=== PATIENT | male | born 1985 | race Caucasian/White ===

== ENCOUNTER 2019-03-13 09:22 | Emergency (ER) | payer SELFPAY ==
--- NOTE | 2019-03-13 11:11 | RAD REPORT ---
EXAM DESCRIPTION: RAD - Ankle Right 3 View - 03/13/2019 10:51 am CLINICAL HISTORY: Right ankle pain status post injury FINDINGS: No fracture or dislocation is seen. Soft tissue swelling laterally
[2019-03-13] MEDS ORDERED: IBUPROFEN 400 MG TAB ONE (11:15)
[2019-03-13] MEDS ORDERED: HYDROCODONE/APAP 5/325 MG TAB ONE (11:15)
--- NOTE | 2019-03-13 11:40 | RAD REPORT ---
EXAM DESCRIPTION: RAD - Foot Right 3 View - 03/13/2019 10:51 am CLINICAL HISTORY: PAIN COMPARISON: No comparisons FINDINGS: Small plantar calcaneal spur evident. No acute fracture or dislocation seen.
--- NOTE | 2019-03-13 11:45 | ER ---
Nurse's Notes [facility] Name: Vishal Polanco III Age: 33 yrs Sex: Male : 1985 Arrival Date: 03/13/2019 Time: : Bed 12 Private MD: Unknown, Unknown Diagnosis: Sprain of ankle;Sprain of foot Presentation: 03/13 09:27 Presenting complaint: Patient states: playing football yesterday and injured his right sv foot/ankle. Care prior to arrival: None. 09:27 Acuity: DENG 4 sv : Method Of Arrival: Wheelchair sv 09:28 Transition of care: patient was not received from another setting of care. Onset of sv symptoms was March 12, 2019. 10:30 Risk Assessment: Do you want to hurt yourself or someone else? Patient reports no aa5 desire to harm self or others. Initial Sepsis Screen: Does the patient meet any 2 criteria? No. Patient's initial sepsis screen is negative. Does the patient have a suspected source of infection? No. Patient's initial sepsis screen is negative. Triage Assessment: 09:27 General: Appears in no apparent distress. uncomfortable, Behavior is calm, cooperative, sv appropriate for age. Pain: Complains of pain in right ankle and dorsum of right foot. Neuro: Level of Consciousness is awake, alert, obeys commands, Oriented to person, place, time, situation. Respiratory: Respiratory effort is even, unlabored, Respiratory pattern is regular, symmetrical. Trauma Activation: Not Applicable Physician: ED Physician; Name: ; Notified At: ; Arrived At: Physician: General Surgeon; Name: ; Notified At: ; Arrived At: Physician: Radiology; Name: ; Notified At: ; Arrived At: Physician: Respiratory; Name: ; Notified At: ; Arrived At: Physician: Lab; Name: ; Notified At: ; Arrived At: Historical: - Allergies: : No Known Allergies; sv - Ebola Screening: : No symptoms or risks identified at this time. Screenin:30 Abuse screen: Denies threats or abuse. Nutritional screening: No deficits noted. aa5 Tuberculosis screening: No symptoms or risk factors identified. Fall Risk Fall in past 12 months (25 points). Assessment: 10:30 General: Appears comfortable, Behavior is calm, cooperative. Pain: Complains of pain in aa5 right ankle Pain does not radiate. Pain currently is 5 out of 10 on a pain scale. Quality of pain is described as aching, throbbing, Is continuous, Aggravated by increased activity, weight bearing. Neuro: Level of Consciousness is awake, alert, obeys commands, Oriented to person, place, time, situation. Cardiovascular: Patient's skin is warm and dry. Respiratory: Airway is patent Respiratory effort is even, unlabored, Respiratory pattern is regular, symmetrical. GI: No signs and/or symptoms were reported involving the gastrointestinal system. : No signs and/or symptoms were reported regarding the genitourinary system. EENT: No signs and/or symptoms were reported regarding the EENT system. Derm: Skin is pink, warm \T\ dry. Musculoskeletal: Circulation, motion, and sensation intact. Swelling present in right ankle. 11:30 Reassessment: Patient is alert, oriented x 3, equal unlabored respirations, skin aa5 warm/dry/pink. Walking boot applied to right foot . Vital Signs: 09:28 BP 137 / 87; Pulse 83; Resp 16; Temp 98; Pulse Ox 97% ; Weight 77.11 kg; Height 5 ft. 8 sv in. (172.72 cm); Pain 5/10; 09:28 Body Mass Index 25.85 (77.11 kg, 172.72 cm) sv ED Course: 09:25 Patient arrived in ED. ag5 09:26 Unknown, Unknown is Private Physician. ag5 09:28 Triage completed. sv 09:29 Arm band placed on. sv 10:28 Beulah Blackwell FNP-C [facility]. snw 10:28 West Mcgregor MD is Attending Physician. snw 10:30 Patient has correct armband on for positive identification. Adult w/ patient. aa5 10:31 Serene Mitchell, RN is Primary Nurse. aa5 11:03 Ankle Right 3 View XRAY Sent. sv 11:03 Foot Right 3 View XRAY Sent. sv 11:30 No provider procedures requiring assistance completed. Patient did not have IV access aa5 during this emergency room visit. Administered Medications: 11:15 Drug: [place] 5 mg-325 mg 1 tabs Route: PO; aa5 11:32 Follow up: Response: No adverse reaction aa5 11:15 Drug: Motrin 400 mg Route: PO; aa5 11:32 Follow up: Response: No adverse reaction aa5 Outcome: 11:09 Discharge ordered by . coleman 11:32 Discharged to home via wheelchair, with significant other. aa5 11:32 Condition: stable 11:32 Discharge instructions given to patient, Instructed on discharge instructions, follow up and referral plans. medication usage, Demonstrated understanding of instructions, follow-up care, medications, Prescriptions given X 2. 11:33 Patient left the ED. aa5 Signatures: Genny Barriga RN RN sv Therrien, Shelly, SURGERY ATTENDANT-C SURGERY ATTENDANT-Csnw Serene Mitchell RN RN aa5 Rupa [facility]
--- NOTE | 2019-03-13 11:46 | EDPHYS ---
Physician Documentation [facility] Name: Vishal Polanco III Age: 33 yrs Sex: Male : 1985 Arrival Date: 03/13/2019 Time: 09:25 Bed 12 Private MD: Unknown, Unknown ED Physician West Mcgregor HPI: 03/13 11:12 This 33 yrs old Male presents to ER via Wheelchair with complaints of Fall snw Injury, Foot Pain. 11:12 Details of fall: The patient fell from an upright position, during sports, football. snw Onset: The symptoms/episode began/occurred suddenly, yesterday. Associated injuries: The patient sustained dorsum of right foot and right ankle, contusion, painful injury, swelling. Severity of symptoms: At their worst the symptoms were moderate. The patient has not experienced similar symptoms in the past. It is unknown whether or not the patient has recently seen a physician. no other c/o, twisted ankle/foot and fell while playing football with his Son yesterday. Historical: - Allergies: 09:28 No Known Allergies; sv - Ebola Screening: : No symptoms or risks identified at this time. ROS: 11:11 Constitutional: Negative for fever, chills, and weight loss, Eyes: Negative for injury, snw pain, redness, and discharge, ENT: Negative for injury, pain, and discharge, Neck: Negative for injury, pain, and swelling, Cardiovascular: Negative for chest pain, palpitations, and edema, Respiratory: Negative for shortness of breath, cough, wheezing, and pleuritic chest pain, Abdomen/GI: Negative for abdominal pain, nausea, vomiting, diarrhea, and constipation, Back: Negative for injury and pain, : Negative for injury, bleeding, discharge, and swelling, Skin: Negative for injury, rash, and discoloration, Neuro: Negative for headache, weakness, numbness, tingling, and seizure, Psych: Negative for depression, anxiety, suicide ideation, homicidal ideation, and hallucinations. 11:11 MS/extremity: Positive for injury or acute deformity, decreased range of motion, pain, swelling, of the dorsum of right foot and right ankle. Exam: 11:11 Constitutional: This is a well developed, well nourished patient who is awake, alert, snw and in no acute distress. Head/Face: Normocephalic, atraumatic. Eyes: Pupils equal round and reactive to light, extra-ocular motions intact. Lids and lashes normal. Conjunctiva and sclera are non-icteric and not injected. Cornea within normal limits. Periorbital areas with no swelling, redness, or edema. ENT: Nares patent. No nasal discharge, no septal abnormalities noted. Tympanic membranes are normal and external auditory canals are clear. Oropharynx with no redness, swelling, or masses, exudates, or evidence of obstruction, uvula midline. Mucous membranes moist. Neck: Trachea midline, no thyromegaly or masses palpated, and no cervical lymphadenopathy. Supple, full range of motion without nuchal rigidity, or vertebral point tenderness. No Meningismus. Chest/axilla: Normal chest wall appearance and motion. Nontender with no deformity. No lesions are appreciated. Cardiovascular: Regular rate and rhythm with a normal S1 and S2. No gallops, murmurs, or rubs. Normal PMI, no JVD. No pulse deficits. Respiratory: Lungs have equal breath sounds bilaterally, clear to auscultation and percussion. No rales, rhonchi or wheezes noted. No increased work of breathing, no retractions or nasal flaring. Abdomen/GI: Soft, non-tender, with normal bowel sounds. No distension or tympany. No guarding or rebound. No evidence of tenderness throughout. Back: No spinal tenderness. No costovertebral tenderness. Full range of motion. Skin: Warm, dry with normal turgor. Normal color with no rashes, no lesions, and no evidence of cellulitis. Neuro: Awake and alert, GCS 15, oriented to person, place, time, and situation. Cranial nerves II-XII grossly intact. Motor strength 5/5 in all extremities. Sensory grossly intact. Cerebellar exam normal. Normal gait. Psych: Awake, alert, with orientation to person, place and time. Behavior, mood, and affect are within normal limits. 11:11 Musculoskeletal/extremity: Extremities: grossly normal except: noted in the dorsum of right foot and right ankle: swelling, tenderness, ROM: no acute changes, Circulation is intact in all extremities. Sensation intact. Vital Signs: 09:28 BP 137 / 87; Pulse 83; Resp 16; Temp 98; Pulse Ox 97% ; Weight 77.11 kg; Height 5 ft. 8 sv in. (172.72 cm); Pain 11/04; 09:28 Body Mass Index 25.85 (77.11 kg, 172.72 cm) sv MDM: 10:36 Patient medically screened. lily 11:10 Data reviewed: vital signs, nurses notes. Data interpreted: Pulse oximetry: on room air snw is 97 %. Interpretation: normal. Counseling: I had a detailed discussion with the patient and/or guardian regarding: the historical points, exam findings, and any diagnostic results supporting the discharge/admit diagnosis, the presence of at least one elevated blood pressure reading (>120/80) during this emergency department visit, radiology results, the need for outpatient follow up, to return to the emergency department if symptoms worsen or persist or if there are any questions or concerns that arise at home. Special discussion: Based on the history and exam findings, there is no indication for further emergent testing or inpatient evaluation. I discussed with the patient/guardian the need to see the orthopedic surgeon for further evaluation of the symptoms. I discussed with the patient/guardian the need to see the primary care provider for further evaluation of the symptoms. 03/13 09:30 Order name: Foot Right 3 View XRAY 03/13 09:30 Order name: Ankle Right 3 View XRAY 03/13 11:06 Order name: Walking boot; Complete Time: 11:32 snw Administered Medications: 11:15 Drug: [place] 5 mg-325 mg 1 tabs Route: PO; aa5 11:32 Follow up: Response: No adverse reaction aa5 11:15 Drug: Motrin 400 mg Route: PO; aa5 11:32 Follow up: Response: No adverse reaction aa5 Disposition: 03/14 07:46 Co-signature as Attending Physician, West Mcgregor MD I agree with the assessment and [facility] plan of care. Disposition: 03/13/19 11:09 Discharged to Home. Impression: Sprain of ankle, Sprain of foot. - Condition is Stable. - Discharge Instructions: Elastic Bandage and RICE, Ankle Sprain, Foot Sprain, Hypertension, Cryotherapy, Heat Therapy, Walking Boot. - Prescriptions for Diclofenac Sodium 75 mg Oral Tablet Sustained Release - take 1 tablet by ORAL route 2 times per day; 30 tablet. orphenadrine citrate 100 mg Oral Tablet Sustained Release - take 1 tablet by ORAL route 2 times per day As needed; 20 tablet. - Work release form, Medication Reconciliation Form, Thank You Letter, Antibiotic Education, Prescription Opioid Use form. - Follow up: Private Physician; When: 2 - 3 days; Reason: Recheck today's complaints, Continuance of care, Re-evaluation by your physician. Follow up: Emergency Department; When: As needed; Reason: Worsening of condition. Signatures: Dispatcher [employer] EDGenny Pretty RN RN West Hearn MD MD cha Therrien, Shelly, HOTEL BREAKFAST ATTENDANT-C HOTEL BREAKFAST ATTENDANT-Csnw Serene Mitchell, SALVATORE RN aa5 Corrections: (The following items were deleted from the chart) 03/13 11:33 11:09 03/13/2019 11:09 Discharged to Home. Impression: Sprain of ankle; Sprain of foot. aa5 Condition is Stable. Forms are Medication Reconciliation Form, Thank You Letter, Antibiotic Education, Prescription Opioid Use. Follow up: Private Physician; When: 2 - 3 days; Reason: Recheck today's complaints, Continuance of care, Re-evaluation by your physician. Follow up: Emergency Department; When: As needed; Reason: Worsening of condition. snw
[2019-03-13 12:16] VITALS: BP 137/87; TEMP 98; O2SAT 97
== END 2019-03-13 11:33 | disposition home or self-care (01) ==
LOC: ER 09:22
DX: S93.601A Unspecified sprain of right foot, initial encounter (principal); S93.401A Sprain of unspecified ligament of right ankle, initial encounter; X50.1XXA Overexertion from prolonged static or awkward postures, initial encounter; Y93.61 Activity, american tackle football; Y92.9 Unspecified place or not applicable
CPT/HCPCS: 99283

== ENCOUNTER 2020-07-17 01:16 | Emergency (ER) | payer SELFPAY ==
[2020-07-17 01:54] LABS: Protime INR 0.9
[2020-07-17 02:05] LABS: Absolute Lymphocytes (CBC) 2.7 K/uL (0.7-4.9); Basophils % 0.6 % (0-1.3); Hematocrit 43.8 % (39.6-49.0); Lymphocytes % 29.5 % (15.3-44.8); MPV 10.6 fL (7.6-11.3); RBC Red Blood Cell Count 5.08 M/uL (4.33-5.43)
[2020-07-17 02:07] LABS: ALT/SGPT 42 U/L (12-78); AST/SGOT 19 U/L (15-37); Albumin 3.9 g/dL (3.4-5.0); Alkaline Phosphatase 69 U/L (45-117); BUN Blood Urea Nitrogen 9 mg/dL (7-18); Bicarbonate 24 mmol/L (21-32); Bilirubin Direct < 0.1 mg/dL (0-0.2); Bilirubin Total 0.2 mg/dL (0.2-1.0); Glucose Level 96 mg/dL (74-106); Magnesium 2.4 mg/dL (1.8-2.4); NT PRO-BNP 7 pg/mL (<125); Potassium 3.9 mmol/L (3.5-5.1); Protein, Total 7.6 g/dL (6.4-8.2); Sodium Level 140 mmol/L (136-145); Troponin (Emerg Dept Use Only) < 0.02 ng/mL (0.0-0.045)
[2020-07-17] MEDS ORDERED: IBUPROFEN 400 MG TAB ONE (02:27)
--- NOTE | 2020-07-17 03:33 | ER ---
Nurse's Notes [facility] Name: Vishal Polanco III Age: 35 yrs Sex: Male : 1985 Arrival Date: 07/17/2020 Time: 01:18 Bed 6 Private MD: Diagnosis: Epigastric pain Presentation: 07/17 01:37 Chief complaint: Patient states: Pt reports he started having midsternal pain that ea started two hours ago, states "it feels swollen". Pt reports it is constant pain, 5/10 that worsens when he bends down and moves. Coronavirus screen: At this time, the client does not indicate any symptoms associated with coronavirus-19. Ebola Screen: No symptoms or risks identified at this time. Initial Sepsis Screen: Does the patient meet any 2 criteria? No. Patient's initial sepsis screen is negative. Does the patient have a suspected source of infection? No. Patient's initial sepsis screen is negative. Risk Assessment: Do you want to hurt yourself or someone else? Patient reports no desire to harm self or others. Onset of symptoms was July 17, 2020. 01:37 Method Of Arrival: Ambulatory ea 01:37 Acuity: DENG 3 ea Historical: - Allergies: 01:40 No Known Allergies; ea - PMHx: 01:40 None; ea - PSHx: 01:40 Hernia repair; ea - Immunization history:: Adult Immunizations up to date. - Social history:: Patient/guardian denies using alcohol, street drugs, The patient lives with family, Smoking status: Patient denies any tobacco usage or history of. - Family history:: not pertinent. Screenin:36 Abuse screen: Denies threats or abuse. Nutritional screening: No deficits noted. ea Tuberculosis screening: No symptoms or risk factors identified. Fall Risk IV access (20 points). Assessment: 01:40 General: Appears uncomfortable, Behavior is appropriate for age. Pain: Complains of ea pain in mid-sternal area Pain does not radiate. Pain currently is 5 out of 10 on a pain scale. Quality of pain is described as "swollen" Pain began 2 hours ago. Cardiovascular: Patient's skin is warm and dry. Derm: Skin is pink, warm \\T\\ dry. 02:50 Reassessment: Patient and/or family updated on plan of care and expected duration. Pain ea level reassessed. Patient is alert, oriented x 3, equal unlabored respirations, skin warm/dry/pink. 03:41 Reassessment: Patient and/or family updated on plan of care and expected duration. Pain ea level reassessed. Patient is alert, oriented x 3, equal unlabored respirations, skin warm/dry/pink. Discharge instruction given to patient, verbalized the understanding of instruction. Pt left ED ambulatory tolerating well. Vital Signs: 01:30 BP 153 / 95; Pulse 85; Resp 20; Temp 97.9; Pulse Ox 97% ; Weight 79.38 kg; Height 5 ft. ar5 8 in. (172.72 cm); Pain 5/10; 03:04 BP 127 / 80; Pulse 70; Resp 18; Pulse Ox 95% on R/A; ea 01:30 Body Mass Index 26.61 (79.38 kg, 172.72 cm) ar5 ED Course: 01:18 Patient arrived in ED. cl3 01:26 Allan Victoria RN is Primary Nurse. rv 01:28 Radhika Bustos MD is Attending Physician. ma2 01:36 Inserted saline lock: 20 gauge in right antecubital area, using aseptic technique. ea Blood collected. Patient maintains SpO2 saturation greater than 95% on room air. 01:37 Arm band placed on right wrist. Patient placed in an exam room, on a stretcher, on ea patient monitor, on pulse oximetry. EKG completed in triage. Results shown to MD. 01:37 Patient has correct armband on for positive identification. Placed in gown. Bed in low ea position. Call light in reach. cardiac monitor on. Pulse ox on. NIBP on. 01:39 Triage completed. ea 02:12 XRAY Chest (1 view) In Process Unspecified. EDMS 02:57 CT Abd/Pelvis - IV Contrast Only In Process Unspecified. EDMS 03:42 No provider procedures requiring assistance completed. IV discontinued, intact, ea bleeding controlled, No redness/swelling at site. Pressure dressing applied. Administered Medications: 02:13 Drug: Motrin 800 mg Route: PO; rv 03:43 Follow up: Response: No adverse reaction ea Outcome: 03:33 Discharge ordered by . ma2 03:42 Discharged to home ambulatory, with family. ea 03:42 Condition: stable 03:42 Discharge instructions given to patient, Instructed on discharge instructions, follow up and referral plans. medication usage, Demonstrated understanding of instructions, follow-up care, medications, Prescriptions given X 2. 03:42 Patient left the ED. chaka Signatures: Dispatcher [employer] Nida Polanco RN RN ea Alzahri, Mohammad, MD MD ma2 Allan Victoria RN RN rv Robles, [facility] Malathi Sanchez3
--- NOTE | 2020-07-17 03:34 | EDPHYS ---
Physician Documentation [facility] Name: Vishal Polanco III Age: 35 yrs Sex: Male : 1985 Arrival Date: 07/17/2020 Time: 01:18 Bed 6 Private MD: ED Physician Radhika Bustos HPI: 07/17 03:31 This 35 yrs old Male presents to ER via Ambulatory with complaints of Chest ma2 Pain. 03:31 This 35 yrs old Male presents to ER via Ambulatory with complaints of ma2 epigastric pain . 03:31 The patient or guardian reports chest pain that is located primarily in the epigastric ma2 area. Associated signs and symptoms: Pertinent negatives: cough, lower extremity pain, lightheadedness. Severity of pain: At its worst the pain was moderate in the emergency department the pain is unchanged. The patient has not experienced similar symptoms in the past. Historical: - Allergies: 01:40 No Known Allergies; ea - PMHx: 01:40 None; ea - PSHx: 01:40 Hernia repair; ea - Immunization history:: Adult Immunizations up to date. - Social history:: Patient/guardian denies using alcohol, street drugs, The patient lives with family, Smoking status: Patient denies any tobacco usage or history of. - Family history:: not pertinent. ROS: 03:31 Constitutional: Negative for fever, chills, and weight loss. ma2 03:31 All other systems are negative. Exam: 03:31 Constitutional: This is a well developed, well nourished patient who is awake, alert, ma2 and in no acute distress. Chest/axilla: Normal chest wall appearance and motion. Nontender with no deformity. No lesions are appreciated. Cardiovascular: Regular rate and rhythm with a normal S1 and S2. No gallops, murmurs, or rubs. Normal PMI, no JVD. No pulse deficits. Respiratory: Lungs have equal breath sounds bilaterally, clear to auscultation and percussion. No rales, rhonchi or wheezes noted. No increased work of breathing, no retractions or nasal flaring. Abdomen/GI: epigastric ttp, mild, Soft, non-tender, with normal bowel sounds. No distension or tympany. No guarding or rebound. No evidence of tenderness otherwise throughout. Skin: Warm, dry with normal turgor. Normal color with no rashes, no lesions, and no evidence of cellulitis. MS/ Extremity: Pulses equal, no cyanosis. Neurovascular intact. Full, normal range of motion. Neuro: Awake and alert, GCS 15, oriented to person, place, time, and situation. Cranial nerves II-XII grossly intact. Motor strength 5/5 in all extremities. Sensory grossly intact. Cerebellar exam normal. Normal gait. Vital Signs: 01:30 BP 153 / 95; Pulse 85; Resp 20; Temp 97.9; Pulse Ox 97% ; Weight 79.38 kg; Height 5 ft. ar5 8 in. (172.72 cm); Pain 5/10; 03:04 BP 127 / 80; Pulse 70; Resp 18; Pulse Ox 95% on R/A; ea 01:30 Body Mass Index 26.61 (79.38 kg, 172.72 cm) ar5 MDM: 01:28 Patient medically screened. ma2 03:31 Differential diagnosis: chest wall pain, esophagitis, gastritis, gastroesophageal ma2 reflux disease (GERD). Data reviewed: vital signs, nurses notes. Counseling: I had a detailed discussion with the patient and/or guardian regarding: the historical points, exam findings, and any diagnostic results supporting the discharge/admit diagnosis, the presence of at least one elevated blood pressure reading (>120/80) during this emergency department visit, the need for outpatient follow up. Response to treatment: the patient's symptoms have markedly improved after treatment. 07/17 00: Order name: Basic Metabolic Panel; Complete Time: :07/17 Order name: CBC with Diff; Complete Time: :07/17 Order name: LFT's; Complete Time: :07/17: Order name: Magnesium; Complete Time: :07/17: Order name: NT PRO-BNP; Complete Time: :07/17 Order name: PT-INR; Complete Time: :07/17: Order name: Troponin (emerg Dept Use Only); Complete Time: :07/17 Order name: XRAY Chest (1 view) ma2 01/20 01:29 Order name: EKG; Complete Time: :2 07/17 01:29 Order name: Cardiac monitoring; Complete Time: :07/17 01:29 Order name: EKG - Nurse/Tech; Complete Time: :07/17 01:29 Order name: IV Saline Lock; Complete Time: :07/17 02:04 Order name: CT Abd/Pelvis - IV Contrast Only 07/17 01:29 Order name: Labs collected and sent; Complete Time: :07/17 01:29 Order name: O2 Per Protocol; Complete Time: :07/17 01:29 Order name: O2 Sat Monitoring; Complete Time: : ma Administered Medications: 02:13 Drug: Motrin 800 mg Route: PO; rv 03:43 Follow up: Response: No adverse reaction ea Disposition: 07/17/20 03:33 Discharged to Home. Impression: Epigastric pain. - Condition is Stable. - Discharge Instructions: Abdominal Pain, Adult, [id number]. - Prescriptions for Zofran 4 mg Oral Tablet - take 1 tablet by ORAL route every 12 hours As needed; 20 tablet. Diclofenac Sodium 75 mg Oral Tablet Sustained Release - take 1 tablet by ORAL route 2 times per day; 30 tablet. Pepcid 20 mg Oral Tablet - take 1 tablet by ORAL route once daily for 10 days; 10 tablet. - Medication Reconciliation Form, Thank You Letter, Antibiotic Education, Prescription Opioid Use, Work release form form. - Follow up: Private Physician; When: Tomorrow; Reason: Continuance of care. Signatures: Dispatcher [employer] [facility] Nida Wilson RN RN ea Radhika Bustos MD MD ma2 Allan Victoria RN RN rv Corrections: (The following items were deleted from the chart) 03:42 03:33 07/17/2020 03:33 Discharged to Home. Impression: Epigastric pain. Condition is ea Stable. Forms are Medication Reconciliation Form, Thank You Letter, Antibiotic Education, Prescription Opioid Use. Follow up: Private Physician; When: Tomorrow; Reason: Continuance of care. ma2
[2020-07-17 03:47] VITALS: TEMP 97.9
[2020-07-17 03:49] VITALS: BP 127/80; O2SAT 95
--- NOTE | 2020-07-17 08:10 | RAD REPORT ---
EXAM DESCRIPTION: Gabrielle Single View07/17/2020 2:12 am CLINICAL HISTORY: Chest pain COMPARISON: none FINDINGS: The lungs appear clear of acute infiltrate. The heart is normal size IMPRESSION: No acute abnormalities displayed
--- NOTE | 2020-07-17 10:37 | RAD REPORT ---
EXAM DESCRIPTION: CT - Abdomen Pelvis W Contrast - 07/17/2020 5:42 am CLINICAL HISTORY: Epigastric abd pain and lump COMPARISON: None Available. TECHNIQUE: CT of the abdomen and pelvis performed following IV administration of iodinated contras t. FINDINGS: Lung Bases: The visualized lung bases are clear. Bones: No destructive bone lesions identified. Abdomen: Liver: The liver has normal size and density. No intrahepatic biliary dilatation. Gallbladder: No calcified gallstones. The gallbladder is decompressed. Spleen, Pancreas, and Adrenal Glands: The spleen, pancreas, and adrenal glands are unremarkable. Kidneys: No hydronephrosis or obstructing calculus. Small inferior pole right renal cyst. Vasculature: The aorta and IVC have normal caliber and position. Accessory inferior pole left renal v ein draining into the left common iliac vein. The portal vein is patent. The proximal visceral and re nal arteries are patent. Stomach: The stomach and duodenum have normal course. Other: No free intraperitoneal air. Mildly prominent right inguinal lymph nodes. Prior right abdo humberto wall hernia repair. Pelvis: Bladder: Urinary bladder is unremarkable. Bowel: No dilated loops of large or small bowel. Appendix: Normal appendix. Pelvis: Prostate is not enlarged. IMPRESSION: 1. No acute inflammatory or obstructive process identified. This exam was performed according to our departmental dose-optimization program, which includes autom ated exposure control, adjustment of the mA and/or kV according to patient size and/or use of iterati ve reconstruction technique. Electronically signed by: Sonido Dasilva 07/17/2020 3:13 AM [employer] Due to temporary technical issues with the PACS/Fluency reporting system, reports are being signed by the in house radiologist without review as a courtesy to ensure prompt reporting. The interpreting r adiologist is fully responsible for the content of the report.
== END 2020-07-17 03:42 | disposition home or self-care (01) ==
LOC: ER 01:16
DX: R10.13 Epigastric pain (principal)
CPT/HCPCS: 36415; 71045; 74177; 80048; 80076; 83735; 83880; 84484; 85025; 85610; 93005; 99285; Q9967